=== PATIENT | male | born 1965 | race Two or more races ===

== ENCOUNTER 2024-06-26 16:10 | Emergency (ER) | payer BC, OTHER ==
[~2024-06-26] VITALS: Ht 177.8 cm; Wt 68.1 kg
--- NOTE | 2024-06-26 16:28 | ED.PDOC ---
HPI Comments 59y M who presents to the ED via EMS for chief complaint of chest pain. Pt states he has been having chest pain since last night PM. Pt states the pain was constant, non-radiating, increased with inspiration and no relieving factors. Pt states earlier this AM, he stated to have cough with noted chest pain and came to local urgent care for further evaluation. Pt states at urgent care, he had EKG and was given 324 ASA and 1 breathing tx with Atrovent and albuterol and EMS was called to the scene. EMS arrived on scene and pt had EKG done which showed STEMI in leads v3 and v4 and pt was brought to the ED for further evaluation. Pt now in the ED, had EKG done which did not show EKG but pt states he is continuing to have chest pain. Pt otherwise denies any other symptoms at this time. Time Seen by MD: 16:23 Reviewed Notes: Professor Of Art Notes, Medications, Allergies Allergies: Coded Allergies: NO KNOWN ALLERGIES (Unverified , 06/26/24) Information Source: Patient, Emergency Med Personnel Mode of Arrival: EMS Brought in by: EMS Severity: Moderate Timing: Minutes, Hours Duration: Since onset Prehospital treatment: 12 Lead EKG, ASA, Treatment (atrovent and albuterol) Location: Chest (R) Radiation: No Radiation Quality: Sharp Onset: At Rest Cardiac Risk Factors: Smoker PE Risk Factors: None History of: None Modifying Factors: Breathing Associated Signs and Symptoms: SOB Past Medical History Past Medical History (Other): athma Surgical History: Hernia Repair Family History Family History: Reviewed,noncontributory to illness Social History Smoker: Cigarettes Alcohol: Occasionally Drugs: Denies Drug Use Lives In: Home Constitutional: denies: chills, diaphoresis, fatigue, fever, malaise, sweats, weakness, others EENTM: denies: blurred vision, double vision, ear bleeding, ear discharge, ear drainage, ear pain, ear ringing, eye pain, eye redness, hearing loss, mouth pain, mouth swelling, nasal discharge, nose bleeding, nose congestion, nose pain, photophobia, tearing, throat pain, throat swelling, voice changes, others Respiratory: reports: cough, shortness of breath; denies: hemoptysis, orthopnea, SOB at rest, SOB with excertion, stridor, wheezing, others Cardiovascular: reports: chest pain; denies: dizzy spells, diaphoresis, Dyspnea on exertion, edema, irregular heart beat, left arm pain, lightheadedness, palpitations, PND, syncope, others Gastrointestinal: denies: abdomen distended, abdominal pain, blood streaked bowels, constipated, diarrhea, dysphagia, difficulty swallowing, hematemesis, melena, nausea, poor appetite, poor fluid intake, rectal bleeding, rectal pain, vomiting, others Genitourinary: denies: burning, dysuria, flank pain, frequency, hematuria, incontinence, penile discharge, penile sore, pain, testicle pain, testicle swelling, urgency, others Neurological: denies: dizziness, fainting, headache, left sided numbness, left sided weakness, numbness, paresthesia, pre-existing deficit, right sided numbness, right sided weakness, seizure, speech problems, tingling, tremors, weakness, others Musculoskeletal: denies: back pain, gout, joint pain, joint swelling, muscle pain, muscle stiffness, neck pain, others Integumetry: denies: bruises, change in color, change in hair/nails, dryness, laceration, lesions, lumps, rash, wounds, others Allergic/Immunocompromised: denies: Difficulty Healing, Frequent Infections, Hives, Itching, others Hematologic/Lymphatic: denies: anemia, blood clots, easy bleeding, easy bruising, swollen glands, others Endocrine: denies: excessive hunger, excessive sweating, excessive thirst, excessive urination, flushing, intolerance to cold, intolerance to heat, unexplained weight gain, unexplained weight loss, others Psychiatric: denies: anxiety, bipolar disorder, depression, hopeless, panic disorder, schizophrenia, sleepless, suicidal, others All Other Systems: Reviewed and Negative Physical Exam General Appearance: Moderate Distress HEENT: Normal ENT Inspection, Pharynx Normal, TMs Normal Neck: Full Range of Motion, Non-Tender, Normal, Normal Inspection Respiratory: Chest Non-Tender, Lungs Clear, No Accessory Muscle Use, No Respiratory Distress, Normal Breath Sounds Cardiovascular: No Edema, No JVD, No Murmur, No Gallop, Normal Peripheral Pulses, Regular Rate/Rhythm Breast Exam: Deferred Gastrointestinal: No Organomegaly, Non Tender, No Pulsatile Mass, Normal Bowel Sounds, Soft Genitalia: Deferred Pelvic: Deferred Rectal: Deferred Extremities: No calf tenderness, Normal capillary refill, Normal inspection, Normal range of motion, Non-tender, No pedal edema Musculoskeletal : Apperance: Normal Neurologic: Alert, energy conservation representative II-XII nml as Tested, No Motor Deficits, Normal Affect, Normal Mood, No Sensory Deficits Cerebellar Function: Normal Reflexes: Normal Skin: Dry, Normal Color, Warm Lymphatic: No Adenopathy EKG EKG : Pulse Rate (adult): 99 [place]: LAD Block: None Hypertrophy: LAE ST: Normal Was a procedure done? Was a procedure done?: No CP Differential Dx Differential Diagnosis: A-fib, A-Flutter, Angina, Anxiety / Panic Attack, Atrial Dysrhythmia, Electrolyte Disorder, PR, PVC's Other Differential Diagnosis COVID, Influenza A and B, Differential Diagnosis: Chest Wall Pain, Costochondritis, Gastritis, Pericarditis, Pneumonia X-Ray, Labs, Meds, VS Vital Signs Date Time Temp Pulse Resp B/P (MAP) Pulse Ox O2 Delivery O2 Flow Rate FiO2 06/26/24 18:00 92 16 139/92 (108) 97 06/26/24 17:28 90 06/26/24 16:30 94 16 94 Room Air* 0 21 06/26/24 16:30 97.6 94 16 144/91 (108) 95 97.6 06/26/24 16:28 99 06/26/24 16:23 98.9 99 16 155/101 (119) 92 98.9 Lab Test 06/26/24 17:56 06/26/24 16:30 Range/Units Troponin I High Sensitivity < 3 L < 3 L </=54 ng/L White Blood Count 8.8 4.4-10.8 10^3/uL Red Blood Count 4.82 4.5-5.90 10^6/uL Hemoglobin 15.9 13.5-17.5 g/dL Hematocrit 46.7 41.0-53.0 % Mean Corpuscular Volume 96.9 80.0-100.0 fL Mean Corpuscular Hemoglobin 33.1 H 28.0-32.0 pg Mean Corpuscular Hemoglobin Concent 34.1 32.0-36.0 g/dL Red Cell Distribution Width 13.5 11.8-14.3 % Platelet Count 232 140-450 10^3/uL Mean Platelet Volume 9.9 6.9-10.8 fL Neutrophils (%) (Auto) 87.8 H 37.0-80.0 % Lymphocytes (%) (Auto) 8.0 L 10.0-50.0 % Monocytes (%) (Auto) 3.7 0.0-12.0 % Eosinophils (%) (Auto) 0.4 0.0-7.0 % Basophils (%) (Auto) 0.1 0.0-2.0 % Neutrophils # (Auto) 7.7 1.6-8.6 10 ^3/uL Lymphocytes # (Auto) 0.7 0.4-5.4 10 ^3/uL Monocytes # (Auto) 0.3 0-1.3 10 ^3/uL Eosinophils # (Auto) 0 0-0.8 10 ^3/uL Basophils # (Auto) 0 0-0.2 10 ^3/uL Nucleated Red Blood Cells 0.1 % Urine Color Light-yellow Yellow Urine Clarity Clear Clear Urine pH 6.5 5.0-9.0 Urine Specific [place] 1.015 1.001-1.035 Urine Protein Negative Negative Urine Ketones Negative Negative Urine Blood Trace H Negative /uL Urine Nitrite Negative Negative Urine Bilirubin Negative Negative Urine Urobilinogen Normal Negative mg/dL Urine Leukocyte Esterase Negative Negative /uL Urine RBC 6 0 - 3 /hpf Urine Microscopic WBC < 1 0-3 /HPF Urine Squamous Epithelial Cells None seen <5 /hpf Urine Bacteria None seen None Seen /hpf Urine Glucose Normal Normal mg/dL Sodium Level 140 136-145 mmol/L Potassium Level 4.3 3.5-5.1 mmol/L Chloride Level 109 H 98-107 mmol/L Carbon Dioxide Level 24 20-31 mmol/L Anion Gap 7 5-15 Blood Urea Nitrogen 8 L 9-23 mg/dL Creatinine 1.11 0.700-1.30 mg/dL Glomerular Filtration Rate Calc 76 >90 mL/min BUN/Creatinine Ratio 7.2 L 10.0-20.0 Serum Glucose 113 H 74-106 mg/dL Calcium Level 10.4 8.7-10.4 mg/dL B-Type Natriuretic Peptide 48.32 0-100 pg/mL CHEST RADIOGRAPH IMPRESSION: 1. No acute cardiopulmonary disease. CBC is within normal limits The chemistry panel is within normal limits The urine test is negative for infection The troponin level is negative At this time, the patient was being admitted to the hospitalist. A cardiology consult will obtained Images Reviewed?: Images reviewed and evaluated by me Time of 1ST Reevaluation: 17:00 Reevaluation 1ST: Unchanged Patient Education/Counseling: Diagnosis, Treatment, Prognosis Family Education/Counseling: No Family Present Departure 1 Departure Time of Disposition: 18:51 Impression: Primary Impression: Acute myocardial ischemia Disposition: ADMITTED INPATIENT Admit to: Tele Condition: Fair Critical Care Note Critical Care Time?: Yes (35 min-critical care time only) Stability Stability form required: Yes Unstable for transfer: Telemetry monitoring (Telemetry monitoring required), ED Physician Assesment (Clinical assesment) Heart Score Heart Score: Heart Score Response (Comments) Value History Slightly Suspicious 0 EKG Normal 0 Age 45-64 1 Risk Factors No known risk factors 0 Troponin Normal limit 0 Total 1 I personally scribed for ISAAK KIMBALL MD ([email or web address]) on 06/26/24 at 16:28. Electronically submitted by Uche Hernandez ([email or web address]). I personally scribed for ISAAK KIMBALL MD ([email or web address]) on 06/26/24 at 17:52. Electronically submitted by Uche Hernandez ([email or web address]). ISAAK KIMBALL MD Jun 26, 2024 16:28
[2024-06-26 16:30] VITALS: PULSE 94; RESP 16; O2SAT 94
[2024-06-26 16:55] LABS: Basophils # (auto) 0 10 ^3/uL (0-0.2); Basophils % (auto) 0.1 % (0.0-2.0); Eosinophils # (auto) 0 10 ^3/uL (0-0.8); Eosinophils % (auto) 0.4 % (0.0-7.0); Hematocrit 46.7 % (41.0-53.0); Hemoglobin 15.9 g/dL (13.5-17.5); Lymphocytes # (auto) 0.7 10 ^3/uL (0.4-5.4); Mean Corpuscular Hemoglobin 33.1 pg (28.0-32.0); Mean Corpuscular Hgb Conc. 34.1 g/dL (32.0-36.0); Mean Corpuscular Volume 96.9 fL (80.0-100.0); Monocytes # (auto) 0.3 10 ^3/uL (0-1.3); Monocytes % (auto) 3.7 % (0.0-12.0); Neutrophils # (auto) 7.7 10 ^3/uL (1.6-8.6); Neutrophils % (auto) 87.8 % (37.0-80.0); Nucleated Red Blood Cells % 0.1 %; Platelet Count (auto) 232 10^3/uL (140-450); Red Blood Cells 4.82 10^6/uL (4.5-5.90); Red Cell Distribution Width 13.5 % (11.8-14.3); White Blood Cell 8.8 10^3/uL (4.4-10.8)
[2024-06-26 16:57] LABS: Potassium 4.3 mmol/L (3.5-5.1); Sodium 140 mmol/L (136-145)
[2024-06-26 16:58] LABS: Anion Gap 7 (5-15); Carbon Dioxide 24 mmol/L (20-31)
[2024-06-26 17:03] LABS: BUN/Creatinine Ratio 7.2 (10.0-20.0)
[2024-06-26 17:04] LABS: Blood Urea Nitrogen 8 mg/dL (9-23); Calcium 10.4 mg/dL (8.7-10.4); Chloride 109 mmol/L (98-107); Glucose 113 mg/dL (74-106)
[2024-06-26 17:08] LABS: Urine Bacteria None Seen /hpf (None Seen)
--- NOTE | 2024-06-26 17:10 | DVH ---
CHEST RADIOGRAPH Indication: cp Technique: Single frontal view of the chest was obtained Comparison: None FINDINGS: Lines and Tubes: None Lungs: No focal consolidation. Pleura: No effusion. No pneumothorax. Cardiomediastinal contours: Unremarkable Bones: No acute osseous abnormality. IMPRESSION: 1. No acute cardiopulmonary disease.
[2024-06-26 17:27] LABS: Urine Blood TRACE /uL (Negative); Urine Clarity Clear (Clear); Urine Color Light-Yellow (Yellow); Urine Protein, UAD Negative (Negative); Urine Specific Gravity 1.015 (1.001-1.035); Urine Squamous Epithelial Cell None Seen /hpf (<5); Urine Urobilinogen Normal (Negative); Urine WBC < 1 /HPF (0-3); Urine pH 6.5 (5.0-9.0)
--- NOTE | 2024-06-26 19:16 | ECG ---
[facility] Test Date: 2024-06-26 Test Time: 16:10:19 Pat Name: GALEN LAIRD Department: ED Room: Gender: M Account Development Representative: pedro : 1965 Requested By: ISAAK KIMBALL Order Number: [id number] Reading MD: Michael Tom Measurements Intervals [place] Rate: 99 P: 63 MS: 150 QRS: -38 QRSD: 78 T: 71 QT: 314 QTc: 403 Interpretive Statements Sinus rhythm Probable left atrial enlargement Abnormal R-wave progression, early transition Inferior infarct, acute (LCx) ST elevation, consider anterior injury Lateral leads are also involved Baseline wander in lead(s) V4 Electronically Signed On 06-27-2024 18:19:42 PDT by Michael Tom Please click the below link to view image of tracing.
--- NOTE | 2024-06-26 19:17 | ECG ---
[facility] Test Date: 2024-06-26 Test Time: 18:57:16 Pat Name: GALEN LAIRD Department: ED Room: Gender: M Force Variation Equipment Tender: pedro : 1965 Requested By: ISAAK KIMBALL Order Number: [id number] Reading MD: Michael Tom Measurements Intervals [place] Rate: 95 P: 64 MD: 147 QRS: -47 QRSD: 88 T: 74 QT: 334 QTc: 420 Interpretive Statements Sinus rhythm Probable left atrial enlargement Abnormal R-wave progression, early transition Inferior infarct, acute (LCx) ST elevation, consider anterior injury Lateral leads are also involved Electronically Signed On 06-27-2024 18:20:14 PDT by Michael Tom Please click the below link to view image of tracing.
[2024-06-26 19:32] VITALS: PULSE 95; RESP 16; O2SAT 94
[2024-06-26 22:35] VITALS: BP 134/89; PULSE 91; RESP 13; TEMP 98.1; O2SAT 95
--- NOTE | 2024-06-27 10:40 | DVHDS2 ---
Physician Discharge Progress N Final Diagnosis: CP, ASC ruled out Operations or Procedures: Operations or Procedures Lab results, EKG, CXR Consultations: Consultations none Commentary: Commentary 59 y.o. male without any medical history arrived to the ED c/o chest pain for one day. Patient stated that he experienced the pain during deep inspirations. He visited where he had an abnormal EKG and was suspected to have STEMI. Patient was also given Aspirin and referred to the ED. In the ED patient had EKG that was not consistent with STEMI. His repeat troponin was normal. Patient stated during my examination the he has no chest pain anymore. Patient informed that he has never had problems with his heart and has no family history of heart problems. Patient is physically fit and denies other medical problems. He did admit that he is a smoker. Patient was advised to have a cardiology appointment that will be scheduled by [facility] on Saturday. He was also advised to stop smoking to eliminate that risk factor. Patient agreed. Condition on Discharge: Stable Disposition: Home SNF Discharge Will this Physician continue t: No Discharge Instructions: Diet: Regular Activity: No Restrictions, As Tolerated Follow Up/Referral: [employer] Operator in 3 days. [facility] will schedule an appointment and call the patient to coordinate the date Follow Up Care: Discharge Statement: "Patient was advised to return to the ER or call 911 if any headaches, dizziness, shortness of breath, chest pain, abdominal pain, bleeding, fevers, or worsening of medical condition. Patient was counseled about treatment plan, medications, possible side effects, patientverbalized understanding. All questions were answered to the best of my ability. This discharge took greater then 30 minutes in planning, reviewing documentation, counseling the patient, and discussing with other team members." ANTONELLA STROUD MD Jun 27, 2024 10:40
--- NOTE | 2024-06-29 07:17 | ECG ---
[facility] Test Date: 2024-06-26 Test Time: 17:28:12 Pat Name: GALEN LAIRD Department: ED Room: Gender: M [employer]ping [employer] Operator: pedro : 1965 Requested By: ISAAK KIMBALL Order Number: [id number] Reading MD: Measurements Intervals [place] Rate: 90 P: 56 OR: 153 QRS: -40 QRSD: 79 T: 73 QT: 328 QTc: 402 Interpretive Statements Sinus rhythm Abnormal R-wave progression, early transition Inferior infarct, acute (LCx) ST elevation, consider anterior injury Lateral leads are also involved Please click the below link to view image of tracing.
== END 2024-06-26 22:39 | disposition home or self-care (01) ==
LOC: ER 16:10 → EDBD 16:10 → ER 22:36
DX: I24.9 Acute ischemic heart disease, unspecified (principal); J45.909 Unspecified asthma, uncomplicated; F17.210 Nicotine dependence, cigarettes, uncomplicated; Z98.890 Other specified postprocedural states; Z79.899 Other long term (current) drug therapy
CPT/HCPCS: 36415; 71045; 80048; 81001; 83880; 84484; 85025; 93005